=== PATIENT | male | born 1975 | race Caucasian/White ===

== ENCOUNTER 2016-10-18 19:56 | Emergency (ER) | payer OTHER ==
[~2016-10-18] VITALS: Ht 195.6 cm; Wt 159.0 kg
[2016-10-18 19:59] VITALS: BP 187/110; PULSE 136; RESP 20; TEMP 100.7; O2SAT 97
--- NOTE | 2016-10-18 20:19 | PD ---
Physical Exam Date Seen by Provider: Oct 18, 2016 Time Seen by Provider: 20:18 Narrative 40 yo male here for injury to left leg. patient states he fell on it. Had an injury there before. has an area of redness. Gets testosterone shots and gave himself a shot there before he fell. Has a fever. Vitals stable in triage with exception of fever and tachycardia. Awaiting bed placement Data Data Last Documented VS Vital Signs Date Time Temp Pulse Resp B/P (MAP) Pulse Ox O2 Delivery O2 Flow Rate FiO2 10/18/16 19:59 100.7 136 20 187/110 (135) 97 Room Air Orders Orders Complete Blood Count With Diff (10/18/16 20:20) Basic Metabolic Panel (Bmp) (10/18/16 20:20) Blood Culture (10/18/16 20:20) Magnesium (Mg) (10/18/16 20:20) Us Leg Venous Doppler (10/18/16 ) Lactic Acid Sepsis Protocol (10/18/16 20:20) MDM Medical Record Reviewed: Yes Supervised Visit with SD: No Ignacio Boston Oct 18, 2016 20:19
[2016-10-18] MEDS ORDERED: TEST1INJ3 IM (21:00)
[2016-10-18 21:03] VITALS: BP 158/84; PULSE 108; RESP 20; TEMP 100.4; O2SAT 95
[2016-10-18] MEDS ORDERED: ACETAMINOPHEN 325 MG TAB PO ONE (21:15)
[2016-10-18] MEDS ORDERED: SODIUM CHLOR 0.9% 1000 ML INJ 1,000 ML IV ONE (21:15)
--- NOTE | 2016-10-18 21:19 | PD ---
HPI Chief Complaint: Pain: Acute or Chronic Time Seen by Provider: 20:59 Travel History International Travel<30 days: No Contact w/Intl Traveler<30days: No Traveled to known affect area: No History of Present Illness HPI 40-year-old male presents to the emergency department for evaluation of right upper leg pain, erythema, fever. Patient states he fell from a ladder this morning, but caught himself with his right leg in the latter. He denies hitting his head or LOC. No neck pain or back pain. No chest pain or abdominal pain. No nausea or vomiting. He states that throughout the day, he started nose he ran a fever after eating dinner. He states his fever was 103. He noticed redness and warmth to the right thigh. He does state that he gives himself testosterone injections and gave himself an injection in the right thigh last night. Patient denies any cough or congestion. No chest pain or shortness of breath. No abdominal pain. Nausea, vomiting, diarrhea. He reports no chronic medical problems and takes no prescribed medications. Apparently, while his blood was being drawn in triage, he had a presyncopal episode and was diaphoretic. [facility] Past Medical History Medical History: Denies Significant Hx Diminished Hearing: No Immunizations Current: No Tetanus Vaccination: < 5 Years Influenza Vaccination: No Past Surgical History Surgical History: No Previous Surgery Social History Alcohol Use: Yes (socially) Tobacco Use: No Substance Use: No Allergies-Medications (Allergen,Severity, Reaction): Coded Allergies: No Known Allergies (Verified Allergy, Unknown, 10/18/16) Reported Meds & Prescriptions Reported Meds & Active Scripts Active Reported Testosterone Cypionate Inj (Testosterone Cypionate) 100 Mg/Ml Inj 100 Mg IM WEEKLY Review of Systems Except as stated in HPI: all other systems reviewed are Neg Physical Exam Narrative GENERAL: Well-nourished, well-developed male patient, fever 100.7 SKIN: Focused skin assessment warm/dry. Patient does have erythema and warmth noted to the right anterior thigh. HEAD: Normocephalic. Atraumatic. EYES: No scleral icterus. No injection or drainage. NECK: Supple, trachea midline. No JVD or lymphadenopathy. CARDIOVASCULAR: Regular rate and rhythm without murmurs, gallops, or rubs. Right pedal pulse 2+. RESPIRATORY: Breath sounds equal bilaterally. No accessory muscle use. Lungs sounds are clear to auscultation. GASTROINTESTINAL: Abdomen soft, non-tender, nondistended. MUSCULOSKELETAL: No cyanosis, or edema. BACK: Nontender without obvious deformity. No CVA tenderness. Data Data Last Documented VS Vital Signs Date Time Temp Pulse Resp B/P (MAP) Pulse Ox O2 Delivery O2 Flow Rate FiO2 10/18/16 21:03 100.4 108 20 158/84 (108) 95 10/18/16 19:59 Room Air Orders Orders Complete Blood Count With Diff (10/18/16 20:20) Basic Metabolic Panel (Bmp) (10/18/16 20:20) Blood Culture (10/18/16 20:20) Magnesium (Mg) (10/18/16 20:20) Lactic Acid Sepsis Protocol (10/18/16 20:20) Creatine Kinase (Cpk) (10/18/16 20:42) Electrocardiogram (10/18/16 ) Femur (Ap & Lat/2vws) (10/18/16 ) Acetaminophen (Tylenol) (10/18/16 21:15) Sodium Chlor 0.9% 1000 Ml Inj (Ns 1000 M (10/18/16 21:15) Clindamycin Inj (Cleocin Inj) (10/18/16 21:30) Us Leg Venous Doppler (10/18/16 21:38) Labs Laboratory Tests Test 10/18/16 21:02 White Blood Count 14.5 TH/MM3 Red Blood Count 5.11 MIL/MM3 Hemoglobin 15.9 GM/DL Hematocrit 46.2 % Mean Corpuscular Volume 90.5 FL Mean Corpuscular Hemoglobin 31.0 PG Mean Corpuscular Hemoglobin Concent 34.3 % Red Cell Distribution Width 13.5 % Platelet Count 335 TH/MM3 Mean Platelet Volume 8.1 FL Neutrophils (%) (Auto) 75.5 % Lymphocytes (%) (Auto) 13.4 % Monocytes (%) (Auto) 9.9 % Eosinophils (%) (Auto) 0.8 % Basophils (%) (Auto) 0.4 % Neutrophils # (Auto) 11.0 TH/MM3 Lymphocytes # (Auto) 1.9 TH/MM3 Monocytes # (Auto) 1.4 TH/MM3 Eosinophils # (Auto) 0.1 TH/MM3 Basophils # (Auto) 0.1 TH/MM3 CBC Comment DIFF FINAL Differential Comment Blood Urea Nitrogen 9 MG/DL Creatinine 1.62 MG/DL Random Glucose 96 MG/DL Calcium Level 9.4 MG/DL Magnesium Level 2.1 MG/DL Sodium Level 133 MEQ/L Potassium Level 3.8 MEQ/L Chloride Level 97 MEQ/L Carbon Dioxide Level 30.6 MEQ/L Anion Gap 5 MEQ/L Estimat Glomerular Filtration Rate 47 ML/MIN Lactic Acid Level 1.5 mmol/L Total Creatine Kinase 191 U/L MDM Medical Decision Making Medical Screen Exam Complete: Yes Emergency Medical Condition: Yes Medical Record Reviewed: Yes Interpretation(s) US right leg - CONCLUSION: No DVT. Differential Diagnosis Cellulitis versus sepsis versus bony injury Narrative Course 40-year-old male presents to the emergency department for evaluation of right thigh pain, increased erythema and warmth, fever that started today. Patient is febrile with a temp of 100.7, tachycardic with heart rate in the 130s. EKG shows sinus tachycardia, heart rate 112, no acute ST changes. CBC, BMP, lactic acid, blood cultures 2, ultrasound of the right leg, x-ray femur ordered and pending. Patient is given Tylenol 650 mg by mouth, normal saline 1 L IV bolus, clindamycin 600 mg IV. CBC shows leukocytosis of 14.5. BMP shows elevated creatinine of 1.62. Lactic acid is 1.5. CK is 191. US shows no DVT. My attending physician, Dr. Mckeon, will resume care and disposition of patient. Brittney Howe Oct 18, 2016 21:19
--- NOTE | 2016-10-18 21:25 | PD ---
Physical Exam Narrative I, Dr. Mckeon, have reviewed the advance practice practitioner's documentation and am in agreement, met with the patient face to face, made the diagnosis, and the medical decision making was done by me. *My assessment and Findings: Cellulitis 40yo M presents to the ED with c/o right thigh pain and swelling today. States he was on the roof at 9am today and his right leg got hurt between the metal ladder but did not fall down. States he was able to get down and ambulate. However, started having pain and swelling and redness later today. Pt does testosterone injections and last injected right thigh yesterday. Pt found to be mildly febrile at 100.7F and tachycardic at 136bpm. When he was in the medical exam room, HR is 108bpm. Denies any IVDA, DM, chest pain, sob, n/v, abdominal pain, numbness, weakness. Right lower extremity exam: +18cm by 21cm erythema anterior femur with tenderness to palpation. Distal pulses intact. Erythema in right thigh with mild tenderness to palpation. No crepitus. Sensation intact. Labs reviewed, mild leukocytosis at 14.5. Lactic acid is normal at 1.5. Mild hyponatremia at 133, pt given NS IVF. Creatinine mildly elevated at 1.62, no prior to compare. Will have pt follow up with PMD. RLE US showed no DVT. Xray right femur showed suprapatellar effusion. Hypertrophic change seen around fibular head. Likely degenerative hypertrophic change. Pt given IV clindamycin and acetaminophen. Fever has resolved. HR is now 98bpm at bedside. I discussed with pt and he wants to go home. I think he is well appearing and can try outpatient therapy first for cellulitis of his right leg. Pt tolerating PO. Strict return precautions given. Data Data Last Documented VS Vital Signs Date Time Temp Pulse Resp B/P (MAP) Pulse Ox O2 Delivery O2 Flow Rate FiO2 10/18/16 22:54 98.9 100 18 148/68 (94) 98 Room Air Orders Orders Complete Blood Count With Diff (10/18/16 20:20) Basic Metabolic Panel (Bmp) (10/18/16 20:20) Blood Culture (10/18/16 20:20) Magnesium (Mg) (10/18/16 20:20) Lactic Acid Sepsis Protocol (10/18/16 20:20) Creatine Kinase (Cpk) (10/18/16 20:42) Electrocardiogram (10/18/16 ) Femur (Ap & Lat/2vws) (10/18/16 ) Acetaminophen (Tylenol) (10/18/16 21:15) Sodium Chlor 0.9% 1000 Ml Inj (Ns 1000 M (10/18/16 21:15) Clindamycin Inj (Cleocin Inj) (10/18/16 21:30) Us Leg Venous Doppler (10/18/16 21:38) Labs Laboratory Tests Test 10/18/16 21:02 White Blood Count 14.5 TH/MM3 Red Blood Count 5.11 MIL/MM3 Hemoglobin 15.9 GM/DL Hematocrit 46.2 % Mean Corpuscular Volume 90.5 FL Mean Corpuscular Hemoglobin 31.0 PG Mean Corpuscular Hemoglobin Concent 34.3 % Red Cell Distribution Width 13.5 % Platelet Count 335 TH/MM3 Mean Platelet Volume 8.1 FL Neutrophils (%) (Auto) 75.5 % Lymphocytes (%) (Auto) 13.4 % Monocytes (%) (Auto) 9.9 % Eosinophils (%) (Auto) 0.8 % Basophils (%) (Auto) 0.4 % Neutrophils # (Auto) 11.0 TH/MM3 Lymphocytes # (Auto) 1.9 TH/MM3 Monocytes # (Auto) 1.4 TH/MM3 Eosinophils # (Auto) 0.1 TH/MM3 Basophils # (Auto) 0.1 TH/MM3 CBC Comment DIFF FINAL Differential Comment Blood Urea Nitrogen 9 MG/DL Creatinine 1.62 MG/DL Random Glucose 96 MG/DL Calcium Level 9.4 MG/DL Magnesium Level 2.1 MG/DL Sodium Level 133 MEQ/L Potassium Level 3.8 MEQ/L Chloride Level 97 MEQ/L Carbon Dioxide Level 30.6 MEQ/L Anion Gap 5 MEQ/L Estimat Glomerular Filtration Rate 47 ML/MIN Lactic Acid Level 1.5 mmol/L Total Creatine Kinase 191 U/L [facility] Supervised Visit with SD: Yes Interpretation(s) EKG: Sinus tachycardia at 112bpm. Normal axis. Diagnosis Primary Impression: Cellulitis Qualified Codes: L03.115 - Cellulitis of right lower limb Patient Instructions: General Instructions Departure Forms: Tests/Procedures Additional Instruction: Please follow up with your primary care physician regarding elevated creatinine at 1.62. Please return to the ED if symptoms dose not improve or worsen in 48 hours. Med/Other Pt SpecificInfo: Prescription(s) given Scripts Acetaminophen (Tylenol) 325 Mg Tab 650 MG PO Q6H Y for PAIN SCALE 1 TO 4 for 5 Days, TAB 0 Refills Prov: Vickie Mckeon DO 10/18/16 Clindamycin (Clindamycin) 300 Mg Cap 300 MG PO Q6H for Infection for 7 Days, CAP 0 Refills Prov: Vickie Mckeon DO 10/18/16 Disposition: 01 DISCHARGE HOME Condition: Stable Vickie Mckeon DO Oct 18, 2016 21:25
[2016-10-18] MEDS ORDERED: CLINDAMYCIN INJ 600 MG in SODIUM CHLORIDE 0.9% INJ 100 ML IV ONE (21:30)
[2016-10-18 21:36] LABS: BASOPHIL # 0.1 TH/MM3 (0-0.2); BASOPHIL % 0.4 % (0.0-2.0); EOSINOPHIL # 0.1 TH/MM3 (0-0.4); EOSINOPHIL % 0.8 % (0.0-4.0); HEMATOCRIT 46.2 % (39.0-51.0); HEMO FLAGS DIFF FINAL; LYMPH % 13.4 % (9.0-44.0); LYMPHOCYTE # 1.9 TH/MM3 (1.0-4.8); MEAN CELL VOLUME 90.5 FL (80.0-100.0); MEAN CORPUSCULAR HGB CONC 34.3 % (32.0-36.0); MONO % 9.9 % (0.0-8.0); NEUT % 75.5 % (16.0-70.0); PLATELET COUNT 335 TH/MM3 (150-450); RED BLOOD COUNT 5.11 MIL/MM3 (4.50-5.90); RED CELL DISTRIBUTION WIDTH 13.5 % (11.6-17.2); WHITE BLOOD COUNT 14.5 TH/MM3 (4.0-11.0)
[2016-10-18 21:52] LABS: BICARBONATE 30.6 MEQ/L (21.0-32.0); MAGNESIUM 2.1 MG/DL (1.5-2.5); POTASSIUM 3.8 MEQ/L (3.5-5.1)
--- NOTE | 2016-10-18 22:12 | RADRPT ---
EXAM DATE/TIME: 10/18/2016 21:35 [facility] COMPARISON: No previous studies available for comparison. INDICATIONS : Right leg redness and swelling. MEDICAL HISTORY : Fever. Right leg redness and swelling. No futher medical history provided. SURGICAL HISTORY : No surgical history provided. ENCOUNTER: Initial ACUITY: 1 day PAIN SCORE: 8/10 LOCATION: Right leg. TECHNIQUE: Venous ultrasound of the leg was performed from the inguinal ligament to the proximal calf. Real-lety e, color Doppler and spectral tracing, compression and augmentation techniques were used. FINDINGS: There is normal compressibility of the deep venous system from the inguinal region to the proximal ca lf. No echogenic clot is seen in the lumen of the common femoral, femoral, popliteal, and posterior tibial veins. There is a normal response of the venous system to proximal and distal augmentation an d respiration. CONCLUSION: No DVT. Rell Mcintosh MD on October 18, 2016 at 22:10 Board Certified Radiologist. This report was verified electronically.
--- NOTE | 2016-10-18 22:43 | RADRPT ---
EXAM DATE/TIME: 10/18/2016 22:28 [facility] COMPARISON: No previous studies available for comparison. INDICATIONS : Right leg pain since falling off a roof yesterday. MEDICAL HISTORY : None. SURGICAL HISTORY : None. ENCOUNTER: Initial ACUITY: 2 days PAIN SCORE: 9/10 LOCATION: Right femur. FINDINGS: Two view examination of the right femur demonstrates no evidence of fracture or dislocation. Bony mi neralization is normal. There are some well-corticated bony density seen around the fibular head whi ch most closely resemble hypertrophic change. Some fracturing/fragmentation at the superior lateral f ibular head cannot be excluded. There is a suprapatellar effusion. CONCLUSION: 1. Suprapatellar effusion. 2. Fragmentation/hypertrophic change seen around the fibular head. This most closely resembles some d egenerative hypertrophic change. This can be correlated if this is a potential site of acute symptoms . Rell Mcintosh MD on October 18, 2016 at 22:38 Board Certified Radiologist. This report was verified electronically.
[2016-10-18 22:54] VITALS: BP 148/68; PULSE 100; RESP 18; TEMP 98.9; O2SAT 98
[2016-10-18] MEDS ORDERED: CLIN1CAP6 PO (23:26)
[2016-10-18] MEDS ORDERED: TYLE325T PO (23:26)
--- NOTE | 2016-10-19 17:40 | EKG ---
Date Performed: 10/18/2016 Time Performed: 20:59:42 PTAGE: 40 years EKG: SINUS TACHYCARDIA POSSIBLE LEFT ATRIAL ENLARGEMENT LEFT VENTRICULAR HYPERTROPHY AND ST-T CH IVY ABNORMAL ECG NO PREVIOUS TRACING DOCTOR: Chuy [place] Interpretating Date/Time 10/19/2016 17:36:23
== END 2016-10-19 00:06 | disposition home or self-care (01) ==
LOC: NEPE 19:56
DX: L03.115 Cellulitis of right lower limb (principal); R00.0 Tachycardia, unspecified; D72.829 Elevated white blood cell count, unspecified; E87.1 Hypo-osmolality and hyponatremia; R11.2 Nausea with vomiting, unspecified; R19.7 Diarrhea, unspecified; R55 Syncope and collapse
CPT/HCPCS: 73552; 80048; 82550; 83605; 83735; 85025; 87040; 93005; 93971; 96365; 99285; J7030